=== PATIENT | male | born 1970 | race Caucasian/White ===

== ENCOUNTER 2022-08-10 14:04 | Emergency (ER) | payer OTHER, SELFPAY ==
[2022-08-10 14:05] VITALS: BP 147/81; PULSE 78; RESP 16; TEMP 36.4; O2SAT 100; BMI 24.4
--- NOTE | 2022-08-10 14:22 | EX.ED.UPPERE ---
HPI History of Present Illness HPI Narrative: Patient sounds with left thumb injury that occurred today. Patient states he got his left thumb caught between a brick and a deck. Patient states this happened approximately 1 hour prior to arrival. Patient describes his pain as throbbing. Patient states nothing makes it better and nothing makes it worse. Patient states he did have some tingling into the tip of his left thumb but this has resolved. Patient denies any weakness. Patient states his last tetanus was approximately 7 years ago. Chief Complaint: Laceration Informant: patient Occured/Mechanism Mechanism/Context: Yes crush Onset/Context/Timing Onset: Today and Hours (1) Context: Sudden Onset Timing: Continuous Quality of Pain: Throbbing Location: Left thumb Worsened by: Nothing Relieved by: Nothing Associated Symptoms Associated Symptoms: Positive for Parasthesia; Negative for Weakness or Loss of Funtion PFSH PFSH Medical History no medical history no medical history Allergy/AdvReac Type Severity Reaction Status Date / Time No Known Allergies Allergy Verified 08/10/22 14:05 Surgical History (Updated 08/10/22 @ 14:[address] Benjamin Olivera DO) History of herniorrhaphy Social History (Updated 08/10/22 @ 14:[address] Benjamin Olivera DO) Smoking Status: Current every day smoker tobacco type: cigarettes ROS ROS ED Constitutional Constitutional ED: Denies chills or fever(s) Eyes Eyes: Denies blurry vision or change in vision ENT ENT ED: Denies rhinorrhea or sore throat Cardiovascular Cardiovascular: Denies chest pain or palpitations Respiratory/Chest Respiratory/Chest: Denies cough or dyspnea Gastrointestinal Gastrointestinal: Denies nausea or vomiting Genitourinary Genitourinary ED: Denies dysuria or hematuria Musculoskeletal Musculoskeletal: Denies back pain or neck pain Integumentary Denies abscess or rash Neurologic Neurologic: Denies headache(s) or weakness Allergic/Immunologic Allergic/Immunologic ED: Denies mouth swelling or urticaria EXAM Physical Exam Const Vital Signs: 08/10/22 14:05 Temperature 97.6 F L Temperature Source Temporal Pulse Rate 78 Respiratory Rate 16 Blood Pressure 147/81 H Blood Pressure Mean 103 Pulse Ox 100 Oxygen Delivery Method Room Air Positive well nourished and well developed General Appearance ED: well developed and NAD HEENT Reports moist mucous membranes Neck full ROM and supple Extremity Extremity Narrative: There is mild tenderness palpation over the proximal phalanx of the left thumb. There is a 2 cm full-thickness linear laceration of the dorsal aspect of the IP joint of the left thumb. There is also a superficial laceration over the palmar aspect of the proximal phalanx of the left thumb. There is mild bleeding noted. Sensation was intact to light touch in all digits. Capillary refill is less than 2 seconds in all digits. Strength is 5/5 in flexion extension of the IP and MP joints of the left thumb. Radial pulses are equal bilaterally. Neuro oriented x3, CN's II-XII intact bilaterally, moves all extremities, no focal motor deficits and no sensory deficits noted Sensorium / Orientation: alert Motor Exam: strength 5/5 throughout Psych mental status grossly normal MDM MDM MDM Narrative Medical decision making narrative: X-rays of the left thumb were obtained. There are 3 views. On my interpretation, there is no acute fracture. There is no dislocation. There is no soft tissue swelling. Radiologist also interpreted the x-rays and agrees. The wound was cleaned and irrigated with copious amounts of normal saline. The wound was anesthetized with [1% plain lidocaine] [via digital block]. The wound was closed with 3 [simple interrupted] #5-0 [nylon] sutures under sterile technique. Patient tolerated the procedure well. Bacitracin dressing was applied. The laceration on the volar aspect of the proximal phalanx of the left thumb does not need suture repair. Bacitracin dressing was applied to this wound as well. Patient was instructed to keep the wound clean and dry. Patient was instructed to follow-up with his primary care physician in 5 to 7 days. Patient understood and was agreeable with the plan. All questions were answered. Discharge Plan Triage Chief Complaint: Laceration ED Provider: Benjamin Olivera Dx/Rx/DC Orders Clinical Impression: Laceration of left thumb Instructions: ED Laceration, Hand: All Closures Primary Care Provider: Jackelin Peguero NP Referrals: Jackelin Peguero NP, [employer] [Primary Care Provider] - 7 Days for suture removal Disposition Disposition: Home, Self Care
[2022-08-10] MEDS: Lidocaine 1% (20 ml mdv) 20 ML Vial INFILT (14:35)
--- NOTE | 2022-08-10 14:53 | RAD_ITS ---
STUDY: X-RAY - LEFT HAND, ATTENTION 1 FINGER REASON FOR EXAM: Male, 52 years old. Injury/Pain TECHNIQUE: 3 view(s) of the finger were obtained. COMPARISON: None. FINDINGS: Normal metacarpal head. Normal metacarpophalangeal joint. Normal proximal phalanx. Normal middle phalanx. Normal distal phalanx. Normal proximal interphalangeal joint. Normal distal interphalangeal joint. RAD/Finger(s) Min 2 Views IMPRESSION: Normal x-ray examination of the finger. Electronically Signed: Wes Ojeda MD at 15:48 EDT ,
== END 2022-08-10 16:06 | disposition home or self-care (01) ==
PROVIDERS: Emergency Provider Emergency Medicine; PCP Nurse Practitioner Family; Visit Provider Emergency Medicine
DX: S61.012A Laceration without foreign body of left thumb without damage to nail, initial encounter (principal); W23.1XXA Caught, crushed, jammed, or pinched between stationary objects, initial encounter; F17.210 Nicotine dependence, cigarettes, uncomplicated
CPT/HCPCS: 12001; 73140; 99283